=== PATIENT | male | born 1940 | race Caucasian/White ===

== ENCOUNTER → 2016-07-29 | Outpatient (CLI) | payer OTHER ==
[~2016-07-29] MED LIST: ATEN50TA41 PO; DRON400T PO; LEVO175T5 PO; METH4TAB6 PO; OMEP-110 PO; WARF2.5T73 PO; WARF5TAB PO
== END | disposition home or self-care (01) ==
LOC: RAD 09:37
PROVIDERS: ATTEND Internal Medicine Hematology & Oncology
DX: Z02.9 Encounter for administrative examinations, unspecified (principal)

== ENCOUNTER 2016-08-11 14:31 | Inpatient (IN) | payer OTHER ==
[~2016-08-11] VITALS: Ht 177.8 cm; Wt 93.5 kg
[2016-08-11] MEDS ORDERED: SODIUM CHLORIDE 0.9% 1,000 ML IV ONE (14:58)
[2016-08-11] MEDS ORDERED: ONDANSETRON 2MG/ML, 2ML IVPush ONE (15:00)
[2016-08-11] MEDS ORDERED: MAALOX/HYOSCYAMINE/LIDOCAINE 45 ML BOTTLE PO ONE (15:00)
[2016-08-11] MEDS ORDERED: SODIUM CHLORIDE 0.9% 1,000ML IVBOLUS ONE (15:00)
[2016-08-11] MEDS ORDERED: FAMOTIDINE 20 MG/2 ML IVP ONE (15:00)
[2016-08-11 15:33] LABS: ASPARTATE AMINO TRANSFERASE 20 U/L (15-37); BLOOD UREA NITROGEN 20 mg/dL (7-18)
[2016-08-11] MEDS ORDERED: ONDANSETRON 2MG/ML, 2ML ONE (15:46)
[2016-08-11] MEDS ORDERED: FAMOTIDINE 20 MG/2 ML ONE (15:46)
[2016-08-11] MEDS ORDERED: MAALOX/HYOSCYAMINE/LIDOCAINE 45 ML BOTTLE ONE ×2 (15:46→16:05)
[2016-08-11 15:50] LABS: DIFF TOTAL CELLS COUNTED 100 CELL DIFF
[2016-08-11 15:57] LABS: ANISOCYTOSIS 2+; POIKILOCYTOSIS 1+; POLYCHROMASIA 1+
[2016-08-11 15:59] LABS: LARGE PLATELETS 1+; VERIFY COUNTS? YES
[2016-08-11] MEDS ORDERED: NS + 40MEQ KCL 1,000 ML IV ONE (17:17)
[2016-08-11] MEDS: NS + 40MEQ KCL 1,000 ML IV SCH ×4 (17:22→23:58)
[2016-08-11] MEDS ORDERED: WARF4TAB7 PO (17:43)
[2016-08-11] MEDS ORDERED: ZOLP10TA5 PO (17:43)
[2016-08-11] MEDS ORDERED: FINA5TAB4 PO (17:43)
[2016-08-11] MEDS ORDERED: FURO-92 PO (17:44)
[2016-08-11] MEDS ORDERED: ATEN-104 PO (17:45)
[2016-08-11] MEDS ORDERED: OXYC10TA6 PO (17:46)
[2016-08-11] MEDS ORDERED: LACT1CAP43 PO (17:47)
[2016-08-11] MEDS ORDERED: ZOLPIDEM 10MG TABLET PO PRN (18:00)
[2016-08-11] MEDS ORDERED: OXYcodone IR 5MG TABLET PO PRN (18:00)
[2016-08-11] MEDS ORDERED: ONDANSETRON 2MG/ML, 2ML IVP PRN (18:30)
[2016-08-11] MEDS ORDERED: HEMORRHOIDAL OINT, 57 GM (PREP H) RC PRN (18:30)
[2016-08-11] MEDS ORDERED: POLYETHYLENE GLYCOL 17 GM PACKET PO PRN (18:30)
[2016-08-11] MEDS ORDERED: ACETAMINOPHEN 325 MG TABLET PO PRN (18:30)
[2016-08-11 20:56] VITALS: BP 87/55
[2016-08-11] MEDS ORDERED: FINASTERIDE 5 MG TABLET PO SCH (21:00)
[2016-08-11] MEDS: DRONEDARONE 400MG TABLET PO SCH (22:18)
[2016-08-11] MEDS ORDERED: SODIUM CHLORIDE 0.9%, 500ML IVBOLUS ONE (22:30)
[2016-08-11 23:39] VITALS: BP 75/47
[2016-08-12] VITALS (7 sets, daily range): BP systolic 75–95; BP diastolic 45–65
[2016-08-12] MEDS: NS + 40MEQ KCL 1,000 ML IV SCH ×4 (04:00→22:45)
[2016-08-12 06:37] LABS: ASPARTATE AMINO TRANSFERASE 16 U/L (15-37); BLOOD UREA NITROGEN 18 mg/dL (7-18)
[2016-08-12 07:15] LABS: DIFF TOTAL CELLS COUNTED 100 CELL DIFF
[2016-08-12 07:19] LABS: ANISOCYTOSIS 2+; LARGE PLATELETS 1+; POIKILOCYTOSIS 1+; POLYCHROMASIA 1+; VERIFY COUNTS? YES
[2016-08-12] MEDS ORDERED: SODIUM CHLORIDE 0.9% 1,000ML IVBOLUS ONE ×2 (07:30)
[2016-08-12] MEDS: BISACODYL 10 MG SUPP PR SCH (09:00)
[2016-08-12] MEDS: SENNA/DOCUSATE TABLET PO SCH (09:00)
[2016-08-12] MEDS: CEFTRIAXONE PMX 1GM/50ML 50 ML IV SCH (10:47)
[2016-08-12] MEDS: METRONIDAZOLE PMX 500MG/100ML 100 ML IV SCH ×3 (11:18→23:48)
[2016-08-12] MEDS: HYDROCORTISONE 100 MG INJ. IVPush SCH ×2 (11:18→22:09)
[2016-08-12] MEDS: DRONEDARONE 400MG TABLET PO SCH ×2 (12:38→22:10)
[2016-08-12] MEDS: LACTOBACILLUS CHEW TABLET PO SCH (12:39)
[2016-08-12] MEDS: LEVOTHYROXINE 175 MCG TABLET PO SCH (12:41)
[2016-08-13 01:57] VITALS: BP 118/39
[2016-08-13] MEDS: HYDROCORTISONE 100 MG INJ. IVPush SCH ×2 (06:02→20:45)
[2016-08-13] MEDS: NS + 40MEQ KCL 1,000 ML IV SCH (06:02)
[2016-08-13 06:47] LABS: ASPARTATE AMINO TRANSFERASE 12 U/L (15-37); BLOOD UREA NITROGEN 18 mg/dL (7-18)
[2016-08-13 06:58] VITALS: BP 85/55
[2016-08-13] MEDS: DRONEDARONE 400MG TABLET PO SCH ×2 (08:49→20:43)
[2016-08-13] MEDS: LEVOTHYROXINE 175 MCG TABLET PO SCH (08:49)
[2016-08-13] MEDS: LACTOBACILLUS CHEW TABLET PO SCH (08:49)
[2016-08-13] MEDS: METRONIDAZOLE PMX 500MG/100ML 100 ML IV SCH (08:49)
[2016-08-13] MEDS: BISACODYL 10 MG SUPP PR SCH (09:00)
[2016-08-13] MEDS: SENNA/DOCUSATE TABLET PO SCH (09:00)
[2016-08-13] MEDS: CEFTRIAXONE PMX 1GM/50ML 50 ML IV SCH (10:45)
[2016-08-13 13:25] VITALS: BP 84/52
[2016-08-13] MEDS: SODIUM CHLORIDE 0.9% 1,000 ML IV SCH (15:00)
[2016-08-13] MEDS: PANTOPRAZOLE 40 MG IV IVPush SCH (16:30)
[2016-08-13] MEDS ORDERED: HYDROCORTISONE 100 MG INJ. IVPush ONE (17:00)
[2016-08-13] MEDS ORDERED: WARFARIN 2.5 MG TABLET PO-COUM SCH (18:00)
[2016-08-13 19:17] VITALS: BP 92/64
[2016-08-13 20:46] LABS: OCCBLD OBC PASS
[2016-08-13] MEDS ORDERED: HYDROCORTISONE 100 MG INJ. IVPush SCH (21:00)
[2016-08-14] MEDS: SODIUM CHLORIDE 0.9% 1,000 ML IV SCH (02:59)
[2016-08-14 03:01] VITALS: BP 86/58
[2016-08-14] MEDS: PANTOPRAZOLE 40 MG IV IVPush SCH (04:23)
[2016-08-14 05:43] LABS: BLOOD UREA NITROGEN 19 mg/dL (7-18)
[2016-08-14] MEDS ORDERED: LEVOTHYROXINE 175 MCG TABLET PO SCH (06:00)
[2016-08-14] MEDS: DRONEDARONE 400MG TABLET PO SCH (08:30)
[2016-08-14] MEDS: HYDROCORTISONE 100 MG INJ. IVPush SCH (08:30)
[2016-08-14] MEDS: LACTOBACILLUS CHEW TABLET PO SCH (08:30)
[2016-08-14] MEDS: CEFTRIAXONE PMX 1GM/50ML 50 ML IV SCH (08:31)
[2016-08-14] MEDS: SENNA/DOCUSATE TABLET PO SCH (08:31)
[2016-08-14] MEDS: BISACODYL 10 MG SUPP PR SCH (08:32)
[2016-08-14 08:46] VITALS: BP 104/70
[2016-08-14] MEDS ORDERED: AMOXICILLIN 500 MG CAPSULE PO SCH (11:00)
[2016-08-14] MEDS ORDERED: AMOX-291 PO (13:03)
[2016-08-14] MEDS ORDERED: FURO-92 PO (13:03)
[2016-08-14] MEDS ORDERED: HYDR20TA PO (13:08)
[2016-08-14 14:14] VITALS: BP 97/64
[2016-08-14] MEDS ORDERED: OMEPRAZOLE 20 MG CAPSULE.DR PO SCH (17:00)
[2016-08-14] MEDS ORDERED: HYDROCORTISONE 20 MG TABLET PO SCH (17:00)
== END 2016-08-14 17:12 | disposition home or self-care (01) | DRG 393 ==
LOC: ED 17:17 → EDIP 17:18 → ED 17:52 → 4WST 20:57
PROVIDERS: ADMIT Family Medicine; ATTEND Family Medicine
PROC: 0T9B70Z Drainage of Bladder with Drainage Device, Via Natural or Artificial Opening (ICD-10-PCS; principal; 2016-08-11)
DX: K52.1 Toxic gastroenteritis and colitis (principal); E43 Unspecified severe protein-calorie malnutrition; D68.69 Other thrombophilia; E87.1 Hypo-osmolality and hyponatremia; E87.2 Acidosis; J98.11 Atelectasis; E27.40 Unspecified adrenocortical insufficiency; N39.0 Urinary tract infection, site not specified; D84.8 Other specified immunodeficiencies; D64.9 Anemia, unspecified; E03.9 Hypothyroidism, unspecified; E87.6 Hypokalemia; C61 Malignant neoplasm of prostate; I95.9 Hypotension, unspecified; E86.0 Dehydration; F17.210 Nicotine dependence, cigarettes, uncomplicated; I10 Essential (primary) hypertension; I48.2 Chronic atrial fibrillation; K21.9 Gastro-esophageal reflux disease without esophagitis; E80.6 Other disorders of bilirubin metabolism; K44.9 Diaphragmatic hernia without obstruction or gangrene; K59.00 Constipation, unspecified; M10.9 Gout, unspecified; Z66 Do not resuscitate; Z79.01 Long term (current) use of anticoagulants; Z83.3 Family history of diabetes mellitus; Z90.79 Acquired absence of other genital organ(s); Z79.899 Other long term (current) drug therapy; T45.1X5A Adverse effect of antineoplastic and immunosuppressive drugs, initial encounter; R11.2 Nausea with vomiting, unspecified
CPT/HCPCS: 36415; 71010; 74000; 74176; 76770; 80048; 80053; 81001; 82272; 82533; 82607; 82746; 83605; 83690; 83735; 84145; 84443; 85025; 85610; 87040; 87077; 87086; 87186; 87324; 93005; 96361; 96374; 96375; J0696; J2405; C9113; J1720; J3480; J7030; J7040; S0028

== ENCOUNTER → 2016-08-18 | Outpatient (CLI) | payer OTHER ==
[~2016-08-18] MED LIST changes: +AMOX-291 PO; +ATEN-104 PO; +FINA5TAB4 PO; +FURO-92 PO; +HYDR20TA PO; +LACT1CAP43 PO; +OXYC10TA6 PO; +WARF4TAB7 PO; +ZOLP10TA5 PO
== END | disposition home or self-care (01) ==
LOC: RAD 11:57
PROVIDERS: ATTEND Family Medicine
DX: I51.7 Cardiomegaly (principal); I48.91 Unspecified atrial fibrillation; J90 Pleural effusion, not elsewhere classified; J98.11 Atelectasis; K44.9 Diaphragmatic hernia without obstruction or gangrene; Z87.81 Personal history of (healed) traumatic fracture
CPT/HCPCS: 71020

== ENCOUNTER 2017-05-05 09:52 | Inpatient (IN) | payer OTHER ==
[2017-05-04 10:18] VITALS: BP 124/80
[2017-05-04 10:52] LABS: BASOPHILS # (AUTO) 0.03 x10^3/uL (0-0.1); BASOPHILS % (AUTO) 1 % (0-1); EOSINOPHILS # (AUTO) 0.07 x10^3/uL (0-0.4); EOSINOPHILS % (AUTO) 2 % (1-7); LYMPHOCYTES # (AUTO) 1.06 x10^3/uL (1-3.4); LYMPHOCYTES % (AUTO) 28 % (22-44); MD NO; MEAN CORPUSCULAR HEMOGLOBIN 32.3 pg (27.5-34.5); MEAN CORPUSCULAR HGB CONC 33.4 g/dL (33.2-36.2); MEAN CORPUSCULAR VOLUME 96.9 fL (81-97); MEAN PLATELET VOLUME 6.4 fL (7.4-10.4); MONOCYTES # (AUTO) 0.46 x10^3/uL (0.2-0.8); MONOCYTES % (AUTO) 12 % (2-9); NEUTROPHILS # (AUTO) 2.18 x10^3/uL (1.8-6.8); NEUTROPHILS % (AUTO) 57 % (42-75); PLATELET COUNT 189 x10^3/uL (130-400); RED BLOOD COUNT 4.14 x10^6/uL (4.38-5.82); RED CELL DISTRIBUTION WIDTH 19.5 % (9.4-14.8)
[2017-05-04 11:00] LABS: INTERNATIONAL NORMALIZED RATIO 1.3 (0.93-1.1); PROTHROMBIN TIME 13.5 Seconds (9.6-11.5)
[2017-05-04 11:04] LABS: ALBUMIN 3.1 g/dL (3.4-5.0); ANION GAP 7 mmol/L (5-15); CALCIUM 8.3 mg/dL (8.5-10.1); CHLORIDE 111 mmol/L (98-107)
[2017-05-04 11:07] LABS: ALANINE AMINOTRANSFERASE 24 U/L (12-78); ALKALINE PHOSPHATASE 63 U/L (45-117); BILIRUBIN,TOTAL 0.9 mg/dL (0.2-1.0); CREATININE 1.03 mg/dL (0.7-1.3); TOTAL PROTEIN 7.2 g/dL (6.4-8.2)
[~2017-05-05] VITALS: Ht 177.8 cm; Wt 91.0 kg
[~2017-05-05 09:52] MED LIST changes: +BUPIVACAINE/PF 0.5% ONE; +CELE200C PO; +OMEP20TA62 PO; +POTA20TA89 PO
[2017-05-05] MEDS ORDERED: LIDOCAINE 1%, 2ML ONE (10:36)
[2017-05-05] MEDS ORDERED: LACTATED RINGERS 1,000 ML IV SCH (10:40)
[2017-05-05] MEDS ORDERED: LENA25CA PO (10:57)
[2017-05-05] MEDS ORDERED: LIDOCAINE 1%, 2ML SQ PRN (11:00)
[2017-05-05 11:09] LABS: INTERNATIONAL NORMALIZED RATIO 1.25 (0.93-1.1); PROTHROMBIN TIME 12.9 Seconds (9.6-11.5)
[2017-05-05] MEDS ORDERED: GLYCOPYRROLATE 0.2MG/1ML, 5ML ONE (12:10)
[2017-05-05] MEDS ORDERED: PROPOFOL 10 MG/ML, 20ML ONE (12:10)
[2017-05-05] MEDS ORDERED: ROCURONIUM 10 MG/ML,10ML ONE (12:11)
[2017-05-05] MEDS ORDERED: CEFAZOLIN 1,000 MG ONE ×2 (12:19)
[2017-05-05] MEDS ORDERED: DEXAMETHASONE 4 MG/ML, 1ML ONE ×2 (12:34)
[2017-05-05] MEDS ORDERED: EPINEPHRINE 1 MG/ML, 1ML INFIL ONE (12:35)
[2017-05-05] MEDS ORDERED: ONDANSETRON 2MG/ML, 2ML ONE (12:35)
[2017-05-05] MEDS ORDERED: FENTANYL PF 100 MCG/2ML ONE ×2 (12:46→14:31)
[2017-05-05] MEDS ORDERED: EPHEDRINE 50 MG/ML, 1ML ONE (12:55)
[2017-05-05] MEDS ORDERED: MEPERIDINE/PF 25MG/0.5ML IVPush PRN (13:00)
[2017-05-05] MEDS ORDERED: HYDROcodone/APAP 7.5-325MG/15ML UDC PO PRN (13:00)
[2017-05-05] MEDS ORDERED: OXYcodone 5 MG/5 ML ORAL.SOL UDC PO PRN (13:00)
[2017-05-05] MEDS ORDERED: ACETAMINOPHEN 325 MG TABLET PO PRN (13:00)
[2017-05-05] MEDS ORDERED: ONDANSETRON 2MG/ML, 2ML IVPush PRN ×2 (13:00→15:30)
[2017-05-05] MEDS ORDERED: NEOSTIGMINE 1 MG/ML, 10ML ONE (13:51)
[2017-05-05] MEDS ORDERED: LIDOCAINE-MPF 2% ,5ML ONE (13:52)
[2017-05-05] MEDS ORDERED: ALBUTEROL SULFATE 2.5 MG/3 ML NPPB PRN (14:30)
[2017-05-05] MEDS ORDERED: ALBUTEROL/IPRATROPIUM 2.5MG/0.5MG, 3 ML ONE (14:30)
[2017-05-05] MEDS ORDERED: morphine SULFATE 10 MG/ML, 1ML ONE (14:31)
[2017-05-05] MEDS ORDERED: ACETAMINOPHEN 650 MG/20.3 ML UDC ONE (14:31)
[2017-05-05] MEDS ORDERED: OXYcodone 5 MG/5 ML ORAL.SOL UDC ONE (14:31)
[2017-05-05] MEDS: FENTANYL PF 100 MCG/2ML IV PRN ×2 (14:33→14:49)
[2017-05-05] MEDS: morphine SULFATE 10 MG/ML, 1ML IV PRN ×2 (14:40→14:56)
[2017-05-05] MEDS ORDERED: hydrALAzine 20 MG/ML, 1ML IV PRN (15:30)
[2017-05-05] MEDS ORDERED: ENALAPRILAT 1.25 MG/ML, 2ML IV PRN (15:30)
[2017-05-05] MEDS ORDERED: LORazepam 2 MG/ML, 1ML IV PRN (15:30)
[2017-05-05] MEDS ORDERED: MORPHINE SULFATE 4 MG/ML, 1ML IVPush PRN (15:30)
[2017-05-05] MEDS ORDERED: DIPHENHYDRAMINE 50 MG/ML, 1ML IV PRN (15:30)
[2017-05-05] MEDS: HYDROcodone/APAP 7.5-325MG/15ML UDC PO PRN ×2 (16:57→20:55)
[2017-05-05] MEDS: LACTATED RINGERS 1,000 ML IV SCH (16:58)
[2017-05-05 18:53] VITALS: BP 106/71
[2017-05-05 23:51] VITALS: BP 98/64
[2017-05-06 00:24] VITALS: BP 114/65
[2017-05-06] MEDS: LACTATED RINGERS 1,000 ML IV SCH ×2 (00:46→08:49)
[2017-05-06] MEDS: HYDROcodone/APAP 7.5-325MG/15ML UDC PO PRN ×5 (01:56→20:24)
[2017-05-06 03:58] VITALS: BP 103/67
[2017-05-06 07:20] VITALS: BP 123/72
[2017-05-06] MEDS: ENOXAPARIN 60 MG/0.6 ML SQ SCH ×2 (08:49→20:25)
[2017-05-06 12:53] VITALS: BP 93/56
[2017-05-06 18:46] VITALS: BP 93/57
[2017-05-07] MEDS: HYDROcodone/APAP 7.5-325MG/15ML UDC PO PRN ×3 (00:39→09:02)
[2017-05-07 01:47] VITALS: BP 94/60
[2017-05-07 06:48] VITALS: BP 102/60
[2017-05-07] MEDS: ENOXAPARIN 60 MG/0.6 ML SQ SCH (08:19)
[2017-05-07] MEDS ORDERED: FUROSEMIDE 40 MG TABLET PO SCH (09:00)
[2017-05-07] MEDS ORDERED: HYDR473S51 PO (12:51)
[2017-05-07 13:20] VITALS: BP 106/72
== END 2017-05-07 13:47 | disposition home or self-care (01) | DRG 327 ==
LOC: OUT 09:52 → ORIP 15:25 → 4NOR 16:30 → DCLOUNGE 05-07 13:37
PROVIDERS: ADMIT Thoracic Surgery (Cardiothoracic Vascular Surgery); ATTEND Thoracic Surgery (Cardiothoracic Vascular Surgery)
PROC: 0DV44ZZ Restriction of Esophagogastric Junction, Percutaneous Endoscopic Approach (ICD-10-PCS; 2017-05-05)
PROC: 8E0W4CZ Robotic Assisted Procedure of Trunk Region, Percutaneous Endoscopic Approach (ICD-10-PCS; 2017-05-05)
PROC: 0BUT4JZ Supplement Diaphragm with Synthetic Substitute, Percutaneous Endoscopic Approach (ICD-10-PCS; principal; 2017-05-05 12:30)
DX: K44.9 Diaphragmatic hernia without obstruction or gangrene (principal); C90.00 Multiple myeloma not having achieved remission; K21.9 Gastro-esophageal reflux disease without esophagitis; Z83.3 Family history of diabetes mellitus; Z82.61 Family history of arthritis; Z80.42 Family history of malignant neoplasm of prostate
CPT/HCPCS: 36415; 80053; 85025; 85610; 85730; 93005; 94640; J0171; J0690; J1100; J1650; J2405; J2704; J2710; J3010; J3490; J7613; J2060; J2270; J7120; Q4116

== ENCOUNTER → 2017-05-13 | Outpatient (CLI) | payer OTHER ==
[~2017-05-13] MED LIST changes: -BUPIVACAINE/PF 0.5% ONE; +HYDR473S51 PO; +LENA25CA PO
== END | disposition home or self-care (01) ==
LOC: CFH 10:14
PROVIDERS: ATTEND Physician Assistant
DX: K56.7 Ileus, unspecified (principal); K31.89 Other diseases of stomach and duodenum
CPT/HCPCS: 74018

== ENCOUNTER → 2018-08-10 | Outpatient (CLI) | payer OTHER ==
[~2018-08-10] MED LIST changes: +WARF2.5T32 PO; -WARF2.5T73 PO; +WARF4TAB65 PO; -WARF4TAB7 PO
== END | disposition home or self-care (01) ==
LOC: PETCFH 08:32
PROVIDERS: ATTEND Internal Medicine
DX: C90.30 Solitary plasmacytoma not having achieved remission (principal); K86.89 Other specified diseases of pancreas
CPT/HCPCS: 78816; A9552